=== PATIENT | female | born 1950 | race Caucasian/White ===

== ENCOUNTER → 2019-09-11 | Outpatient (CLI) | payer MEDICARE, BC ==
[~2019-09-11] VITALS: Ht 152.4 cm; Wt 72.6 kg
[~2019-09-11] MED LIST: CALC1TAB2 PO; DENOSUMAB 60 MG/ML SQ ONE; LISI-167 PO; MULT-709 PO; SERT25TA PO
[2019-09-11 10:48] VITALS: BP 105/68
[2019-09-11 11:15] LABS: CREATININE 0.81 mg/dL (0.55-1.02)
== END | disposition home or self-care (01) ==
LOC: INFUSION 11:32
PROVIDERS: ATTEND Family Medicine
DX: M81.0 Age-related osteoporosis without current pathological fracture (principal); K21.9 Gastro-esophageal reflux disease without esophagitis; E78.5 Hyperlipidemia, unspecified
CPT/HCPCS: 36415; 82310; 82565; 96372; J0897

== ENCOUNTER → 2020-04-02 | Outpatient (CLI) | payer MEDICARE, BC ==
[~2020-04-02] VITALS: Ht 147.3 cm; Wt 74.8 kg
[2020-04-02 10:25] VITALS: BP 113/73
[2020-04-02 10:54] LABS: CALCIUM 9.3 mg/dL (8.5-10.1); CREATININE 0.65 mg/dL (0.55-1.02)
== END | disposition home or self-care (01) ==
LOC: INFUSION 09:50
PROVIDERS: ATTEND Family Medicine
DX: M81.0 Age-related osteoporosis without current pathological fracture (principal); K21.9 Gastro-esophageal reflux disease without esophagitis; E78.5 Hyperlipidemia, unspecified
CPT/HCPCS: 36415; 82310; 82565; 96372; J0897